=== PATIENT | male | born 1970 | race Hispanic/Latino ===

== ENCOUNTER 2021-10-12 15:00 | Emergency (ER) | payer BC, MEDICAID, SELFPAY ==
--- NOTE | ~2021-10-12 | XR_ITS ---
EXAMINATION: XR chest 1V portable INDICATION: Nausea and vomiting, possible COVID 19 TECHNIQUE: Portable AP chest at 1726 hours COMPARISON: None available FINDINGS: There are patchy airspace opacities of the mid and lower lung zones. There is no pleural ef fusion or pneumothorax. The cardiomediastinal silhouette is normal. IMPRESSION: 1. Patchy opacities of the mid and lower lung zones, consistent with atelectasis versus pneumonia. Reviewed, dictated and finalized at location [facility]. [employer]END[employer] IMPRESSION: 1. Patchy opacities of the mid and lower lung zones, consistent with atelectasi s versus pneumonia.
[2021-10-12 15:05] VITALS: BP 143/70; PULSE 53; RESP 20; TEMP 36.2; O2SAT 100
[2021-10-12 16:40] VITALS: BP 143/70; PULSE 64; RESP 18; TEMP 36.2; O2SAT 100
--- NOTE | 2021-10-12 17:00 | ED.GENADULT ---
HPI - General Adult General Chief complaint: Nausea/Vomiting/Diarrhea Stated complaint: body aches/abd pain/n/v/taylor Time Seen by Provider: 10/12/21 16:34 Source: patient Mode of arrival: ambulatory Limitations: no limitations History of Present Illness HPI narrative: This is a 51 year old male who presents for evaluation of multiple complaints and concern for covid. Patient developed intermittent headache, body aches, abdominal pain since Tuesday. His symptoms are worse at night. Patient is also complaining of sore throat and fever of 100F yesterday. He went to another facility for covid test but he was told that it would take 2 days. He denies nausea, vomiting, diarrhea, dysuria or hematuria. He denies numbness or tingling. Related Data Allergies Allergy/AdvReac Type Severity Reaction Status Date / Time No Known Allergies Allergy Verified 10/12/21 16:45 Review of Systems Review of Systems: All systems reviewed & are unremarkable except as noted in HPI and below PMFSH Past Medical History Medical History (Updated 10/13/21 @ 00:00 by Rand Santamaria) Patient denies medical problems Surgical History Surgical History (Updated 10/12/21 @ 17:06 by Daxa Hernandez MD) No pertinent past surgical history Social History Social History (Updated 10/12/21 @ 17:06 by Daxa Hernandez MD) Smoking status: Never smoker Exam Const: General: no acute distress and alert Orientation/consciousness: patient oriented x3 HENMT: Head: normocephalic and atraumatic Ears: TM's normal bilaterally General nose exam: Normal external nose present and Normal nares present Face and sinus: normal facial exam, sinuses nontender and face symmetric Mouth: Yes Normal oral and palatal mucosa present, Yes lip normal, Yes oropharynx normal and Yes moist mucous membranes Throat: posterior oropharynx normal, tonsils normal and uvula midline Eyes: Pupils: Equal, round and reactive pupils present EOM: EOMs intact bilaterally Neck: Neck: normal visual inspection Resp: Effort & Inspection: normal respiratory effort and no retractions Auscultation: clear to auscultation bilaterally Cardio: Rate: regular rate Rhythm: regular rhythm Heart sounds: no murmurs GI: GI Palp: Yes Soft to palpation, No Tenderness to palpation present (GI) and No Guarding due to palpation present (GI) Auscultation: normal bowel sounds Back/Spine/Pelvis: Back: no CVA tenderness Skin: General skin exam: normal color Rashes: no rashes Neuro: General: patient oriented x3, moves all extremities and CN's II-XI intact bilaterally Psych: Mental Status: mental status grossly normal Affect: normal affect Course Reevaluation(s) Reevaluation #1: I have discussed with patient that he will need to assume he has covid. Chest xray shows questionable pneumonia so will start antibiotics. Date: 10/12/21 Time: 19:06 Vital Signs Vital signs: Vital Signs Temperature 97.1 F L 10/12/21 15:05 Pulse Rate 53 L 10/12/21 15:05 Respiratory Rate 20 10/12/21 15:05 Blood Pressure 143/70 H 10/12/21 15:05 Pulse Oximetry 100 10/12/21 15:05 Temperature 97.1 F L 10/12/21 16:40 Pulse Rate 64 10/12/21 16:40 Respiratory Rate 18 10/12/21 16:40 Blood Pressure 143/70 H 10/12/21 16:40 Pulse Oximetry 100 10/12/21 16:40 Medical Decision Making Vital Signs Vital Signs: Vital Signs Temperature 97.1 F L 10/12/21 15:05 Pulse Rate 53 L 10/12/21 15:05 Respiratory Rate 20 10/12/21 15:05 Blood Pressure 143/70 H 10/12/21 15:05 Pulse Oximetry 100 10/12/21 15:05 Temperature 97.1 F L 10/12/21 16:40 Pulse Rate 64 10/12/21 16:40 Respiratory Rate 18 10/12/21 16:40 Blood Pressure 143/70 H 10/12/21 16:40 Pulse Oximetry 100 10/12/21 16:40 Lab Data Lab results reviewed: Yes I reviewed the patient's lab results. Result diagrams: 10/12/21 17:08 10/12/21 17:08 Labs: Lab Results 10/12/21
[2021-10-12 17:18] LABS: Basophils Percent Auto 0.8 % (0.2-1.2); Eosinophils Percent Auto 0.3 % (0-4.4); Hematocrit 43.5 % (42.0-52.0); Hemoglobin 14.7 g/dL (14.0-18.0); Immature Granulocyte Absolute 0.01 K/mm3 (0.00-0.031); Immature Granulocyte Percent A 0.3 % (0-0.5); Lymphocytes Absolute Auto 1.55 K/mm3 (0.9-3.2); Mean Corpuscular HGB Conc 33.8 g/dl (32-36); Mean Corpuscular Hemoglobin 28.7 pg (26-34); Mean Platelet Volume 9.4 fl (7.4-10.4); Monocytes Absolute Auto 0.6 K/mm3 (0.1-0.6); Monocytes Percent Auto 14.4 % (2.6-8.5); Neutrophils Absolute Auto 1.8 K/mm3 (1.3-6.7); Neutrophils Percent Auto 45.2 % (45.5-73.1); Platelet Count Result 174 k/mm3 (150-375); Red Blood Count 5.12 M/mm3 (4.6-6.20); Red Cell Distribution Width 12.9 % (11.5-14.5)
[2021-10-12 17:26] LABS: Add Urine Microscopic? YES; Appearance Urine Clear (Clear); Bilirubin Urine Negative (Negative); Blood Urine 1+ (Negative); Color Urine Amber (Yellow); Glucose Urine UA Negative (Negative); Ketones Urine Trace mg/dL (Negative); Leukocyte Esterase Ur Negative LEU/UL (Negative); Mucus Urine Heavy /lpf; Nitrate Urine Negative (Negative); Protein Urine 1+ mg/dL (Negative); Squamous Epithelial Cell Urine Rare /hpf (Few); Urobilinogen Urine Negative mg/dL (<2.0); WBC Urine 0-3 /hpf
[2021-10-12 17:27] LABS: Specific Grav Ur 1.032 (1.001-1.035)
[2021-10-12 17:28] LABS: Alanine Aminotransferase 36 U/L (4-50); Albumin Level 4.5 g/dL (3.5-5.1); Alkaline Phosphatase 71 U/L (38-126); Anion Gap 12 mmol/L (8-16); Aspartate Amino Transferase 36 U/L (17-59); Bilirubin,Total 0.3 mg/dL (0.2-1.3); Blood Urea Nitrogen 21 mg/dL (9-20); Carbon Dioxide 25 mmol/L (22-30); Chloride 103 mmol/L (98-107); Creatine Kinase 112 U/L (55-170); Estimated CRCL calculation 74 ml/min; Estimated Glomerular Filt Rate > 60; Glucose 91 mg/dL (65-110); Lipase 297 U/L (23-300); Potassium 4.4 mmol/L (3.4-5.0); Sodium 140 mmol/L (137-145)
[2021-10-13 21:02] LABS: SARS-CoV-2 RNA PCR Positive
== END 2021-10-12 19:28 | disposition home or self-care (01) ==
PROVIDERS: Emergency Provider General Practice; PCP Physician Assistant
DX: U07.1 COVID-19 (principal); J18.9 Pneumonia, unspecified organism
CPT/HCPCS: 36415; 71045; 80053; 81001; 82550; 83690; 85025; 87804; 99283; C9803; U0003; U0005